=== PATIENT | female | born 1975 | race Asian ===

== ENCOUNTER 2020-04-08 14:00 | Emergency (ER) | payer OTHER ==
[~2020-04-08] VITALS: Ht 165.1 cm; Wt 56.3 kg
[2020-04-08 14:01] VITALS: BP 125/94
[2020-04-08] MEDS ORDERED: PROPARACAINE 0.5% OPHTH SOL 15ML OD ONE (14:45)
[2020-04-08] MEDS ORDERED: FLUORESCEIN OPHTH 1 MG STRIP OD ONE (14:45)
[2020-04-08] MEDS ORDERED: ERYTHROMYCIN OPHTH OINT OD ONE (15:15)
== END 2020-04-08 15:24 | disposition home or self-care (01) ==
LOC: M ED 14:00
DX: S05.91XA Unspecified injury of right eye and orbit, initial encounter (principal); T65.91XA Toxic effect of unspecified substance, accidental (unintentional), initial encounter; Y92.89 Other specified places as the place of occurrence of the external cause; Y93.9 Activity, unspecified

== ENCOUNTER → 2020-06-10 | Outpatient (CLI) | payer OTHER ==
[~2020-06-10] MED LIST: PROHANCE 279.3MG/ML 5ML VIAL ONE
--- NOTE | 2020-07-30 10:55 | REP ---
MRI BILATERAL BREASTS WITH AND WITHOUT CONTRAST Study performed 06/10/2020. Study was not available for dictation and interpretation until 06/21/2020, due to facility catastrophic computer failures. HISTORY: Prior biopsies right breast. Yearly MRI recommended. TECHNIQUE: Multiple sequences are obtained in the axial, coronal, and sagittal planes prior to and following the intravenous administration of 10 mL ProHance. Images are evaluated in the [employer] software including dynamic post-IV gadolinium T1 axial fat sat images, subtraction images, color overlay images, CAD images, and MIP reconstruction images. FINDINGS: There is an extreme pattern of parenchymal tissue bilaterally. There is mild background parenchymal enhancement. No axillary adenopathy is seen. There is no suspicious enhancing mass or morphologic abnormality. IMPRESSION: BI-RADS category 1 negative bilateral breast MRI. No suspicious enhancing mass or morphologic abnormality detected. [facility]
== END ==
LOC: M RAD 14:56
PROVIDERS: ATTEND Nurse Practitioner
DX: Z12.31 Encounter for screening mammogram for malignant neoplasm of breast (principal)
CPT/HCPCS: A9576; C8908

== ENCOUNTER → 2020-06-17 | Outpatient (CLI) | payer OTHER ==
--- NOTE | 2020-07-04 11:56 | REPMRS ---
Patient History The patient states she has not had a clinical breast exam in over a year. Patient had first child at age 37. No known family history of cancer. Benign lumpectomy of the right breast. No Hormone Replacement Therapy Digital Woman Screen Mammo: June 17, 2020 - Exam #: [id number] Bilateral CC and MLO view(s) were taken. Technologist: Maame Rubio, Technologist Prior study comparison: May 31, 2018, bilateral digital mammo screening bilat, performed at [facility]. March 04, 2018, bilateral digital mammo screening bilat, performed at [facility]. FINDINGS: The breast tissue is extremely dense which could obscure a lesion on mammography. The Volpara volumetric breast density category is: D. There is an extremely dense symmetrical pattern of residual fibroglandular tissue. There has been no change in the appearance of the mammogram from the previous studies. There is no interval development of dominant mass, archetectural distortion, or grouped microcalcifications suggestive of malignancy. 3-D tomosynthesis shows no additional findings. Assessment: BI-RADS/ACR category 1 mammogram. Negative Mammogram. Recommendation Routine screening mammogram of both breasts in 1 year (for women over age 40). This patient's Lifetime Breast Cancer RIsk is estimated at 13.2 %. This mammogram was interpreted with the aid of an FDA-approved computer-aided dectection system. Electronically Signed By: Lj Jolly MD 07/04/20 [id number]
== END ==
LOC: M WHC 08:02
PROVIDERS: ATTEND Nurse Practitioner
DX: Z12.31 Encounter for screening mammogram for malignant neoplasm of breast (principal)